=== PATIENT | female | born 1980 | race Hispanic/Latino ===

== ENCOUNTER 2017-01-29 18:51 | Emergency (ER) | payer BC, OTHER ==
[2017-01-29 19:38] VITALS: BMI 42.9
--- NOTE | 2017-01-29 21:36 | US ---
EXAM: US Uterus, Limited CLINICAL HISTORY: 36 years old, female; Screening exam; Routine us, uterus; Additional info: Decreased movement. TECHNIQUE: Real-time ultrasound of the maternal uterus (limited) with image documentation. EXAM DATE/TIME: 01/29/2017 7:53 PM COMPARISON: No relevant prior studies available. FINDINGS: Single fetus identified, cephalic position. Calculated sonographic gestational age is 38 weeks, 6 days. Estimated weight is 7 pounds, 12 ounces. heart motion visualized, at 140 beats/min. movement was also detected. Very limited assessment of the anatomy on this exam. The stomach, 4 chamber heart, and three-vessel cord are seen. Anterior location of the placenta. No evidence of placental abruption. DANIA is 13 cm, which is between the 5th and 95th percentile for the calculated gestational age. Cervical length is 4.7 cm (normal greater than 3 cm), measured transabdominally. IMPRESSION: 38 week, 6 day intrauterine with heart motion. No acute abnormality identified on this limited exam. See above for remaining findings.
== END 2017-01-29 21:20 | disposition home or self-care (01) ==
LOC: H.EROB2 18:51
DX: O47.1 False labor at or after 37 completed weeks of gestation (principal); Z3A.39 39 weeks gestation of pregnancy

== ENCOUNTER 2017-02-03 19:07 | Inpatient (IN) | payer OTHER ==
--- NOTE | 2017-02-03 19:17 | OBHP ---
Datetime: 01/29/2017 20:05 IP Adm Impression: Term, intrauterine IP Admit Plan: Observation/Evaluation Admit Comment, IP Provider: 36 YO SABx2 IABx1 @ 39.2 weeks presents to the [facility] after being re ferred by Dr. Snider. She had complained of decreased movements. PT states her last U/S was 3 weeks ago and baby was 8 pounds. Patient admits to not taking her PNV because it makes her nauseous . She does take daily iron - Denies LOF, CTX, VB PMH: Anemia , Asthma, GERD PSH: Gastric sleeve Allergy: [place], Amoxicillin Medicine: Iron, Omeprazole F/H: HTN HIV: NEg Rubella: immune HBSAG: neg GBS: neg Social Hx: pt declines smoking or exposure to smoke ( Even though room smells like smoke) A/P: 36 YO SABx2 IABx1 @ 39.2 weeks - Continue monitoring - OB U/S w/ DANIA Ruchi Reyes PGY-1 [facility] ADDENDUM: pt seen _ examined by me. o: dania 13 i: modified bpp 06/19 p: d/c home pt sched for induction this wk Extremities - PN: Normal Abdomen - PN: Normal Lungs - PN: Normal Heart - PN: Normal General - PN: Normal FHR - Baseline A Provider: 145 EGA AdmitDate IP: 39.2 Vital Signs Provider: Reviewed; Within Normal Limits IP Chief Complaint: Decreased movement NICHD Variability Prov Fetus A: Moderate 6-25bpm NICHD Accel Fetus A IP Provider: 15X15 FHR Category Provider Fetus A: Category I NICHD Decel Fetus A IP Provider: None
[2017-02-03 19:26] VITALS: BMI 42.3
--- NOTE | 2017-02-03 21:17 | OBADHP ---
Datetime: 02/03/2017 21:14 Admit Comment, IP Provider: 36 YO SABx2 IABx1 @ 39.2 weeks presents to [facility] for induction. Pt sees Dr. Snider. She denies decreased fm, srom, bleeding. She c/o occasional ctxs. reports good fm since prior visit to [facility]. PMH: Anemia , Asthma, GERD PSH: Gastric sleeve Allergy: [place], Amoxicillin Medicine: Iron, Omeprazole F/H: HTN HIV: NEg Rubella: immune HBSAG: neg GBS: neg Social Hx: denies tobacco, etoh or drug use I: 40wks AMA P: admit for induction. Begin pitocin in am. pt d/w dr. adamson Datetime: 02/03/2017 21:07 Pelvic Type - PN: Adequate Extremities - PN: Normal Abdomen - PN: Normal Back - PN: Normal Lungs - PN: Normal Heart - PN: Normal Neurologic - PN: Normal HEENT - PN: Normal General - PN: Normal FHR - Baseline A Provider: 130 Membranes, Provider: Intact Contraction Comments Provider: irreg Comments, ACOG Physical Exam: gbs neg, ri, hiv, rpr, hepBneg B+ Vital Signs Provider: Within Normal Limits IP Chief Complaint: Scheduled induction of labor NICHD Variability Prov Fetus A: Moderate 6-25bpm NICHD Accel Fetus A IP Provider: 15X15 FHR Category Provider Fetus A: Category I Dilatation, Provider: 4 Effacement, Provider: 80 Station, Provider: -2 Genitourinary Exam: Normal EGA AdmitDate IP: 40.0 IP Adm Impression: Term, intrauterine IP Admit Plan: Admit to unit Datetime: 01/29/2017 20:05 NICHD Decel Fetus A IP Provider: None
[2017-02-03 21:35] VITALS: BP 122/72; PULSE 91; RESP 18; TEMP 98.8; O2SAT 99
[2017-02-03 22:18] LABS: BASO % 0.2 % (0.0-2.0); EOS % 0.2 % (0.0-4.0); HEMATOCRIT 27.9 % (34.0-47.0); LYMPH # 1.4 K/uL (1.0-4.3); LYMPH % 12.5 % (20.0-40.0); MEAN CELL VOLUME 66.7 fl (81.0-99.0); MEAN CORPUSCULAR HEMOGLOBIN 20.4 pg (27.0-31.0); MEAN CORPUSCULAR HGB CONC 30.5 g/dL (33.0-37.0); MEAN PLATELET VOLUME 9.4 fl (7.2-11.7); MONO # 0.7 K/uL (0.0-0.8); MONO % 6.5 % (0.0-10.0); NEUT # 9.2 K/uL (1.8-7.0); NEUT % 80.6 % (50.0-75.0); RED CELL DISTRIBUTION WIDTH 17.2 % (11.5-14.5); WHITE BLOOD COUNT 11.4 K/uL (4.8-10.8)
[2017-02-04] MEDS ORDERED: Lactated Ringer's 1,000 ML IV SCH ×2 (04:45→04:50)
[2017-02-04] MEDS ORDERED: Fentanyl/Bupivacaine HCl 250 ML EPI ONE (05:16)
[2017-02-04] MEDS ORDERED: Bupivacaine HCl 0.25% PF (10 ml) Inj ONE (05:17)
[2017-02-04] MEDS ORDERED: Lidocaine 1% Inj (20ml) ONE ×2 (05:55→07:29)
[2017-02-04] MEDS ORDERED: Oxytocin 30 units/LR 500ML 30 U/500 ML BAG IV SCH (07:00)
[2017-02-04] MEDS ORDERED: Lidocaine 2% PF (10 ml) Amp ONE ×2 (07:30→07:32)
--- NOTE | 2017-02-04 08:17 | OBDS ---
DELIVERY PERSONNEL Delivery Doctor: Clark Bethea MD Resident: Judit Cordero MD PGY1 MATERNAL INFORMATION Delivery Anesthesia: Epidural Medications in Delivery: Pitocin 30 units in 500 mls Provider Comments: Delivery Note diagnosis: 40.1wk labor anesthesia: Dr. Fuentes, epidural,local lidocaine 1% ob: md holly resident: nancy pgy1 procedure: ; neonated suctioned nares _ mouth at perineum; cord blood collected; placenta deliv ered spontatneously and intact; repair of 2nd degree perineal tear ebl 250cc findings: viable female; 9_9; wt 9lb3oz; body cord remained in birthing room with pt specimens: none LABOR SUMMARY EDC: 02/03/2017 00:00 No. Babies in Womb: 1 Attempted: No Labor Anesthesia: Epidural LABOR INFORMATION Reason for Induction: Not Applicable Oxytocin: N/A Group B Beta Strep: Negative Steroids Given: None Reason Steroids Not Administered: Not Applicable MEMBRANES Membranes Rupture Method: Spontaneous Rupture of Membranes: 02/04/2017 05:39 Length of Rupture (hrs): 2.28 Amniotic Fluid Color: Clear Amniotic Fluid Amount: Moderate Amniotic Fluid Odor: None STAGES OF LABOR Stage 3 hrs: 0 Stage 3 min: 2 VAGINAL DELIVERY Episiotomy: None Laceration Type: Perineal Laceration Repair: Yes Laceration Repair Note: median second degree perineal tear repaired with 3-0 vicryl. Count Comment: lap count correct x2 BABY A INFORMATION Delivery Date/Time: 02/04/2017 07:56 Method of Delivery: Vaginal Born in Route : No : N/A Forceps: N/A Vacuum Extraction: N/A Shoulder Dystocia : No SHOULDER DYSTOCIA BABY A Infant Delivery Date/Time: 02/04/2017 07:56 PRESENTATION/POSITION BABY A Presentation: Cephalic Cephalic Presentation: Vertex Breech Presentation: N/A PLACENTA INFORMATION BABY A Placenta Delivery Time : 02/04/2017 07:58 Placenta Method of Delivery: Spontaneous Placenta Status: Delivered SCORES BABY A Heart Rate 1 min: >100 bpm Resp Effort 1 min: Good Cry Reflex Irritability 1 min: Cough or Sneeze or Pulls Away Muscle Tone 1 min: Active Motion Color 1 min: Body New Point, Extremities Blue Resuscitation Effort 1 min: N/A SCORE 1 MIN: 9 Heart Rate 5 min: >100 bpm Resp Effort 5 min: Good Cry Reflex Irritability 5 min: Cough or Sneeze or Pulls Away Muscle Tone 5 min: Active Motion Color 5 min: Body New Point, Extremities Blue Resuscitation Effort 5 min: N/A SCORE 5 MIN: 9 INFORMATION BABY A Gestational Age at Delivery: 40.1 Gestational Status: Term Infant Outcome : Liveborn Condition : Stable Infant Sex: Female IDENTIFICATION/MEDS BABY A ID Band Number: [id number] ID Band Location: Left Leg; Left Arm WEIGHT/LENGTH BABY A Birthweight (gms): 4170 Infant Weight (lb): 9 Infant Weight (oz): 3 CORD INFORMATION BABY A No. Cord Vessels: 3 Nuchal Cord : N/A Nuchal Cord Other: N/A True Knot: N/A Infant Cord pH Baby Arterial: N/A Cord pH Baby Venous: N/A Cord Blood Taken: Yes Banking/Donate Info: N/A Suction: Mouth; Nose
[2017-02-04] MEDS ORDERED: Oxycodone/Acetaminophen 5/325 mg Tab PO PRN (08:19)
[2017-02-04] MEDS ORDERED: Benzocaine/Menthol SPRAY TOP PRN (08:19)
[2017-02-04] MEDS ORDERED: Albuterol HFA 90 mcg/actuation (8 g) INH PRN (11:44)
[2017-02-04] MEDS ORDERED: PRO AIR HFA 8.5GM INHALER(FOR OR USE ONLY) IH PRN (12:15)
[2017-02-04] MEDS: Oxycodone/Acetaminophen 5/325 mg Tab PO PRN (20:47)
[2017-02-05 06:57] LABS: HEMATOCRIT 24.4 % (34.0-47.0); MEAN CELL VOLUME 67.1 fl (81.0-99.0); MEAN CORPUSCULAR HEMOGLOBIN 20.6 pg (27.0-31.0); MEAN CORPUSCULAR HGB CONC 30.6 g/dL (33.0-37.0); RED CELL DISTRIBUTION WIDTH 16.8 % (11.5-14.5); WHITE BLOOD COUNT 8.3 K/uL (4.8-10.8)
[2017-02-05] MEDS ORDERED: Albuterol HFA 90 mcg/actuation (8 g) IH PRN (07:55)
[2017-02-05] MEDS ORDERED: PRO AIR HFA 8.5GM INHALER(FOR OR USE ONLY) IH PRN (08:15)
[2017-02-05] MEDS: Oxycodone/Acetaminophen 5/325 mg Tab PO PRN ×2 (08:30→21:08)
--- NOTE | 2017-02-05 09:03 | OBPPN ---
Datetime: 02/05/2017 08:58 PP Pain Prov: Within normal limits PP Nausea Prov: Denies PP Flatus Prov: Yes PP BM Prov: Yes PP Breasts Prov: Normal PP Heart Prov: Normal PP Lungs Prov: Normal PP Abdomen/Uterus Prov: Normal PP Lochia Prov: Normal PP Vulva/Perineum Prov: Normal PP CVA Tenderness Prov: Normal PP Extremities Prov: Normal PP Progress Prov: Normal PP Comments Phys Exam Prov: Skin : old rash on chest x1y ...rash on breast x 2w (PUPPS acc to pt) PP Impression Prov: Normal progression PP Plan Prov: Continue present management PP Impression Other Prov: Anemia - stable PP Progress Note Prov: B pos Rubella Immune H/H 04/02...starting A: S/P day 1 Anemia - asymptomatic PLAN: FeSO4 upon discharge in AM Follow up in 6w Vital Signs Provider PP: Reviewed; Within Normal Limits
--- NOTE | 2017-02-06 07:16 | OBDCSUM ---
Datetime: 02/06/2017 07:15 Discharged to, Provider: Home Follow up at, Provider: [facility] Disch Instr Activity: Normal activity Disch Instr Diet: Regular Discharge Instructions, Provider: Routine instructions given Discharge Diagnosis, Provider: Term Delivered Follow up in weeks, Provider: 6W Disch Referrals: None Contraception discussed, Prov: Yes Disch Activity Restrictions: No sexual activity; Nothing in vagina - [place], tampons, douche
== END 2017-02-06 11:15 | disposition home or self-care (01) | DRG 373 ==
LOC: H.EROB2 19:07 → H.L&D 20:52 → H.OB/GYN 02-04 10:00
PROVIDERS: ADMIT Obstetrics & Gynecology; ATTEND Obstetrics & Gynecology
PROC: 10E0XZZ Delivery of Products of Conception, External Approach (ICD-10-PCS; principal; 2017-02-03)
PROC: 0KQM0ZZ Repair Perineum Muscle, Open Approach (ICD-10-PCS; 2017-02-03)
PROC: 4A1HXCZ Monitoring of Products of Conception, Cardiac Rate, External Approach (ICD-10-PCS; 2017-02-03)
DX: O48.0 Post-term pregnancy (principal); D64.9 Anemia, unspecified; O99.02 Anemia complicating childbirth; J45.909 Unspecified asthma, uncomplicated; O99.52 Diseases of the respiratory system complicating childbirth; Z37.0 Single live birth; O70.1 Second degree perineal laceration during delivery; Z3A.40 40 weeks gestation of pregnancy